=== PATIENT | male | born 1995 | race African-American/Black ===

== ENCOUNTER 2017-03-12 00:10 | Emergency (ER) | payer SELFPAY ==
[~2017-03-12] VITALS: Ht 180.3 cm; Wt 86.4 kg
[2017-03-12 00:22] VITALS: TEMP 96.3
[2017-03-12 02:20] VITALS: BP 117/83; PULSE 80
== END 2017-03-12 02:20 | disposition home or self-care (01) ==
LOC: COL.ER 00:10
DX: F12.10 Cannabis abuse, uncomplicated (principal); R00.2 Palpitations